=== PATIENT | female | born 1995 | race Hispanic/Latino ===

== ENCOUNTER 2019-01-05 20:36 | Emergency (ER) | payer BC, MEDICAID ==
[~2019-01-05 20:36] MED LIST: PREN-196 PO
[2019-01-05] MEDS ORDERED: MAGNESIUM CITRATE 296 ML SOLUTION ONE (22:12)
== END 2019-01-05 23:24 | disposition home or self-care (01) ==
LOC: EDH 20:36
DX: K59.00 Constipation, unspecified (principal)
CPT/HCPCS: 99282

== ENCOUNTER → 2022-09-21 | Emergency (ER) | payer BC, MEDICAID, OTHER ==
[~2022-09-21] VITALS: Ht 160 cm; Wt 65.3 kg
[2022-09-21 12:52] VITALS: BP 140/91
[2022-09-21 13:45] LABS: APPEARANCE,URINE CLEAR (CLEAR); BILIRUBIN,URINE NEGATIVE (NEGATIVE); COLOR,URINE YELLOW (YELLOW); GLUCOSE, URINE (UA) NEGATIVE (NEGATIVE); KETONES,URINE 150 mg/dL (NEGATIVE); LEUKOCYTE ESTERASE ,URINE 25 Leu/uL (NEGATIVE); NITRATE,URINE NEGATIVE (NEGATIVE); OCCULT BLOOD,URINE NEGATIVE (NEGATIVE); PROTEIN,URINE 30 mg/dL (NEGATIVE); UROBILINOGEN,URINE 0.2 mg/dL (0.2-1.0)
[2022-09-21 13:55] LABS: HCG,QUALITATIVE URINE NEGATIVE (NEGATIVE)
[2022-09-21 13:57] LABS: BACTERIA,URINE RARE /HPF (None Seen); MUCUS,URINE FEW LPF (None Seen); SQUAMOUS EPITHELIAL CELL,UR MOD /HPF (0-2)
== END ==
LOC: EDH 12:51
DX: R79.9 Abnormal finding of blood chemistry, unspecified (principal); Z53.21 Procedure and treatment not carried out due to patient leaving prior to being seen by health care provider; Z20.822 Contact with and (suspected) exposure to COVID-19
CPT/HCPCS: 99281; 87635; 87880; 87804 ×2; 81001; 81025; C9803